=== PATIENT | male | born 1965 | race Caucasian/White ===

== ENCOUNTER 2025-08-18 16:27 | Emergency (ER) | payer BC, OTHER ==
[~2025-08-18] VITALS: Ht 180.3 cm; Wt 92.1 kg
[2025-08-18] MEDS: SODIUM CHLORIDE 0.9% 1,000 ML IV ONE (16:54)
[2025-08-18] MEDS: DILTIAZEM HCL 5MG/ML 5ML VIAL IV ONE (16:55)
[2025-08-18 17:09] LABS: BASOPHILS % 0.5 % (0.0-2.0); EOSINOPHILS % 6.6 % (0.0-5.0); HEMATOCRIT. 51.5 % (42.0-52.0); HEMOGLOBIN. 17.1 g/dL (14.0-18.0); LYMPHOCYTES % 43.9 % (20.0-50.0); MEAN PLATELET VOLUME 7.3 fl (7.4-10.4); MONOCYTES % 8.8 % (2.0-8.0); NEUTROPHILS % 40.2 % (40.0-76.0); PLATELET 325 x1000/uL (130-400); RED BLOOD CELL COUNT 5.67 mill/uL (4.7-6.1); RED CELL DISTRIBUTION WIDTH 13.9 % (11.6-14.6)
[2025-08-18 17:17] VITALS: O2SAT 100
[2025-08-18 17:22] LABS: CREATININE 1.2 mg/dL (0.6-1.3); UREA NITROGEN BLOOD 16 mg/dL (9-23)
[2025-08-18 17:24] LABS: ASPARTATE AMINOTRANSFERASE 40 IU/L (<34); BILIRUBIN DIRECT 0.3 mg/dL (<=3.0); TROPONIN I HIGH SENSITIVITY < 4 ng/L (3.0-53)
[2025-08-18 17:25] LABS: BILIRUBIN TOTAL 1.0 mg/dL (0.1-1.0); PROTEIN TOTAL 7.7 g/dL (6.0-8.3)
[2025-08-18] MEDS: DILTIAZEM HCL 60MG TABLET PO ONE (18:24)
[2025-08-18 19:13] LABS: CLARITY URINE CLEAR (CLEAR); GLUCOSE URINE 3+ (NEGATIVE); KETONES URINE NEGATIVE (NEGATIVE); LEUKOCYTE ESTERASE URINE NEGATIVE (NEGATIVE); NITRITE URINE NEGATIVE (NEGATIVE); OCCULT BLOOD URINE NEGATIVE (NEGATIVE); PH URINE 5.5 (4.5-8.0); PROTEIN URINE NEGATIVE (NEGATIVE); SPECIFIC GRAVITY URINE 1.011 (1.005-1.030); UROBILINOGEN URINE 0.2 E.U./dL (0.2-1.0)
[2025-08-18 19:43] LABS: TROPONIN I HIGH SENSITIVITY 14 ng/L (3.0-53)
[2025-08-18 20:08] LABS: COLOR URINE STRAW (YELLOW)
[2025-08-18 20:10] LABS: BACTERIA URINE NONE SEEN; RBC URINE NONE SEEN /hpf (0-2); SQUAMOUS EPITHELIAL CELL URINE NONE SEEN /lpf (RARE/1+); WBC URINE 0-2 /hpf (0-2)
[2025-08-18 21:14] LABS: TROPONIN I HIGH SENSITIVITY 16 ng/L (3.0-53)
[2025-08-18 22:10] VITALS: BP 118/75; PULSE 64; RESP 18; TEMP 36.7; O2SAT 98
== END 2025-08-18 22:29 | disposition short-term general hospital (02) ==
LOC: ER 16:27 → EDBEDREQ 20:09 → EDBEDREQTM 20:09 → EDBEDREQ 20:18 → EDBEDREQTM 20:18 → ER 22:29 → CMPBEDREQ 08-19 07:36
DX: I48.91 Unspecified atrial fibrillation (principal); E78.00 Pure hypercholesterolemia, unspecified; R06.02 Shortness of breath; I10 Essential (primary) hypertension; Z95.5 Presence of coronary angioplasty implant and graft; Z95.1 Presence of aortocoronary bypass graft
CPT/HCPCS: 80076; 80048; 81003; 83880; 83690; 83735; 85025; 85379; 84484; 36415; 71045; 93005; 96361; 96374; 99285; J3490; J7030; Z7610